=== PATIENT | female | born 1950 | race Caucasian/White ===

== ENCOUNTER 2016-09-21 08:51 | Inpatient (IN) | payer OTHER, MEDICARE ==
[~2016-09-21] VITALS: Ht 154.9 cm; Wt 68.0 kg
[2016-10-14] MEDS ORDERED: DICL75TA PO (09:34)
[2016-10-14] MEDS ORDERED: HYDR-3583 PO (09:34)
[2016-10-14] MEDS ORDERED: NORT25CA PO (09:34)
[2016-10-14] MEDS ORDERED: PREV15CA15 PO (09:34)
[2016-10-14] MEDS ORDERED: SUMA100T2 PO (09:34)
[2016-10-14] MEDS ORDERED: ZOFR4TAB PO (09:34)
--- NOTE | 2016-10-20 | MH ---
cc: IDANIA LOPEZ DATE OF ADMISSION: 10/20/2016 ADMITTING DIAGNOSIS: Right knee osteoarthritis. HISTORY OF PRESENT ILLNESS: This patient is a 66 year-old female with significant deformity and pain in the region of her right knee. Investigative study shows evidence of moderate to extensive arthritis right knee. Despite conservative care the patient is painful and symptomatic, and presents now for surgical treatment. PAST MEDICAL HISTORY: See attached notes. SOCIAL HISTORY, FAMILY HISTORY, AND REVIEW OF SYSTEMS: See attached notes. PHYSICAL EXAMINATION: GENERAL: The patient is a 66 year-old female in moderate distress with her right knee. HEENT: Normocephalic, atraumatic. Pupils equal, round, reactive to light and accommodation. Extraocular motions intact. NECK: Supple. CHEST: Clear. HEART: Regular rate and rhythm. ABDOMEN: Soft, nontender, normoactive bowel sounds. MUSCULOSKELETAL EXAMINATION: Right knee, pain with range of motion, mild deformity is seen. Crepitus with range of motion. Neurologic and vascular examination is within normal limits. IMPRESSION Osteoarthritis right knee PLAN Right total knee replacement arthroplasty. CONSENT The risks of surgery including infection, bleeding, loss of motion, continued pain, need for further surgery, neurologic and vascular injury. The patient understands these issues and wishes to press on with surgery as outlined above. Idania Lopez MD [facility] [place]11:37 PM /11:51 PM
[2016-10-20] MEDS ORDERED: LACTATED RINGER'S 1000 ML IV PRN (06:30)
[2016-10-20] MEDS ORDERED: INSULIN HUMAN REGULAR 1,000 UNITS/10 ML VIAL SQ PRN (06:30)
[2016-10-20] MEDS ORDERED: METOPROLOL TARTRATE 25 MG TAB PO PRN (06:30)
[2016-10-20] MEDS ORDERED: CHLORHEXIDINE GLUCONATE 2 % 1 PACK (2 CLOTHS) TOPICAL PRN (06:30)
[2016-10-20] MEDS ORDERED: POVIDONE IODINE 5% (ANTISEPSIS KIT) 4 APPLICATIONS EACH NARE PRN (06:30)
[2016-10-20] MEDS ORDERED: SODIUM CHLORID 0.9% 500 ML IV PRN (06:30)
[2016-10-20] MEDS ORDERED: GENTAMICIN SULFATE 80 MG/2 ML VIAL ONE (06:44)
[2016-10-20] MEDS ORDERED: TRANEXAMIC ACID IV SCH ×2 (06:45→11:30)
[2016-10-20] MEDS ORDERED: EXPAREL PERI-ARTICULAR INJECTION (TOTAL VOL. 60 ML) P-ARTICULR SCH ×2 (06:45)
[2016-10-20] MEDS ORDERED: POVIDONE IODINE 7.5% SCRUB 118 ML BOTTLE TOPICAL SCH (06:45)
[2016-10-20] MEDS ORDERED: SODIUM CHLORIDE 0.9% IV SCH ×2 (06:45→11:30)
[2016-10-20] MEDS ORDERED: VANCOMYCIN 1000 MG/NS 250 ML (for <70 kg) IV SCH ×2 (06:45)
[2016-10-20] MEDS ORDERED: ceFAZolin 2 GM PREMIX 50 ML IV SCH (06:45)
[2016-10-20 06:59] VITALS: BP 146/79; PULSE 75; RESP 20; TEMP 98.6; O2SAT 98
[2016-10-20] MEDS ORDERED: FAMOTIDINE 20 MG/2 ML VIAL ONE (08:13)
[2016-10-20] MEDS ORDERED: DEXAMETHASONE SOD PHOS 4 MG/ML VIAL ONE ×3 (08:13→11:25)
[2016-10-20] MEDS ORDERED: APREPITANT 40 MG CAP ONE (08:13)
--- NOTE | 2016-10-20 10:11 | PD.OP ---
cc: Jayson Alva MD Operative Report Date of Surgery: Oct 20, 2016 Preoperative Diagnosis: Osteoarthritis right knee Postoperative Diagnosis: Same Procedure: Right total knee replacement arthroplasty Anesthesia: Gen. Surgeon: Jayson Alva Warehouse Pricing And Inventory Clerk(s): IRIS Garzon Operation and Findings: EBL: 100 cc INDICATION: This patient presents with long-standing arthritis of the knee. Attachment record documents conservative measures. The patient now presents for surgical treatment. NOTE: Alessandra Garzon PA-C was present for the entire surgical procedure as my first coat sander. In my medical opinion her skill and care was necessary for proper management of this patient. TOURNIQUET TIME: 43 minutes COMPANY: [employer] FEMUR: Size 3, right, posterior cruciate retaining TIBIA: Size 2, right, fixed bearing PATELLA: 32 mm POLYETHYLENE INSERT: 9 mm PROCEDURE: This patient was brought the operating room and anesthetized in the supine position. The patient was positioned supine on the table. The tourniquet was placed about the thigh, and the leg was scrubbed with alcohol followed by Hibiclens followed by ChloraPrep and draped sterilely. A timeout was done, and antibiotics were given. After exsanguination the tourniquet was inflated to 250 mmHg. An anterior incision was made and a median parapatellar arthrotomy was performed. The patella was released laterally and subluxed allowing freehand cut of the patella which was then sized. A metal cap was placed over the exposed patellar surface for protection. A airplane patrol pilot hole was placed in the distal femur allowing a 3 valgus cut removing 10 mm from the distal femur. Anterior posterior and chamfer cuts were made. The posterior stabilize osteotomy was made. The attention was directed to the tibia. Retractors were positioned. The external alignment guide was used allowing the lateral tibia to be used as referencing guide and cut utilizing an oscillating saw taking care to avoid any injury to the surrounding soft tissues. This was sized properly. Trial reduction showed that the insert fit nicely. The patient had range of motion extension 0 flexion 125. A medial release was not necessary. The bony surfaces prepared. On the back table 2 packets of methylmethacrylate were mixed. The components were cemented. Excess cement was removed. The tourniquet let down and hemostasis was controlled. The final plastic insert was inserted. Range of motion was the same as previously noted. A drain was brought through a separate stab incision. The arthrotomy was repaired with interrupted #1 Vicryl suture, subcutaneous tissue 2-0 Vicryl suture and skin with metallic carla A sterile dressing was applied. Sponge counts, needle counts and instrument counts were all correct. The patient tolerated procedure well and was taken to recovery in satisfactory condition. FINDINGS: Severe osteoarthritis with erosion of distal femoral and proximal tibial bone. The final solution appeared be very satisfactory and very stable. Jayson Alva MD Oct 20, 2016 10:11
[2016-10-20] MEDS ORDERED: OXYC1TAB63 PO (10:12)
[2016-10-20] MEDS ORDERED: XARE10TA PO (10:12)
[2016-10-20] MEDS ORDERED: MISCELLANEOUS NURSING INFORMATION XX PRN (10:15)
[2016-10-20] MEDS ORDERED: MORPHINE SULFATE 30 MG/30 ML PCA IV SCH (10:15)
[2016-10-20] MEDS ORDERED: NALOXONE HCL 0.4 MG/ML AMP IV PRN (10:15)
[2016-10-20] MEDS ORDERED: MISCELLANEOUS PHARMACY INFORMATION XX ONE (10:15)
[2016-10-20] MEDS ORDERED: MORPHINE SULFATE 8 MG/ML INJ IM PRN (10:15)
[2016-10-20] MEDS ORDERED: TEMAZEPAM 15 MG CAP PO PRN (10:15)
[2016-10-20] MEDS ORDERED: oxyCODONE/ACETAMINOPHEN 5 MG/325 MG TAB PO PRN ×2 (10:15)
[2016-10-20] MEDS ORDERED: PANTOPRAZOLE SOD 20 MG DELAYED RELEASE TAB PO PRN (10:15)
[2016-10-20] MEDS ORDERED: Post-op Orders (for Pharmacy) MISC XX ONE (10:15)
[2016-10-20] MEDS ORDERED: SODIUM CHLORIDE 0.9% FLUSH 5 ML FLUSH IVF PRN (10:15)
[2016-10-20] MEDS ORDERED: *MEPERIDINE 25 MG INJ VIAL PERIprocedural Use ONLY ONE (10:33)
[2016-10-20] MEDS ORDERED: DO NOT ADM ANY ANTICOAGULANT DRUGS PRN (10:38)
[2016-10-20] MEDS ORDERED: *ONDANSETRON 4 MG VIAL PERIprocedural Use ONLY ONE (10:38)
[2016-10-20] MEDS ORDERED: fentaNYL CITRATE 250 MCG/5 ML AMP ONE (10:53)
[2016-10-20] MEDS ORDERED: *PROMETHAZINE 25 MG/ML VIAL PERIprocedural use ONLY ONE (10:54)
--- NOTE | 2016-10-20 11:04 | RADRPT ---
EXAM DATE/TIME: 10/20/2016 10:46 [place] COMPARISON: No previous studies available for comparison. INDICATIONS : Post op right knee arthroplasty. MEDICAL HISTORY : None. SURGICAL HISTORY : None. ENCOUNTER: Initial ACUITY: 1 day PAIN SCORE: 4/10 LOCATION: Right knee FINDINGS: Right total knee arthroplasty is present. The hardware is intact. Alignment is anatomic. A surgical d rain is present. Skin carla are noted ventrally. CONCLUSION: Satisfactory appearance post right TKA Juanjose Kline MD on October 20, 2016 at 11:02 Board Certified Radiologist. This report was verified electronically.
[2016-10-20] MEDS: LACTATED RINGER'S 1000 ML INJ 1,000 ML IV SCH ×2 (11:20→22:50)
[2016-10-20] MEDS ORDERED: DEXAMETHASONE SOD PHOS 4 MG/ML VIAL IV ONE (12:00)
[2016-10-20] MEDS ORDERED: BUPIVACAINE LIPOSOME PF 1.3% 20 ML VIAL ONE (12:47)
[2016-10-20 15:12] VITALS: BP 147/71; PULSE 67; RESP 18; TEMP 97.5; O2SAT 97
[2016-10-20] MEDS: PCA - TOTAL MG MORPHINE DELIVERED PER SHIFT SCH ×2 (16:30→22:55)
[2016-10-20 19:00] VITALS: BP 118/65; PULSE 80; RESP 16; TEMP 96; O2SAT 95
[2016-10-20] MEDS ORDERED: SENNOSIDES 8.6 MG TAB PO SCH (21:00)
[2016-10-20] MEDS ORDERED: NORTRIPTYLINE HCL 25 MG CAP PO SCH (21:00)
[2016-10-20] MEDS: MAGNESIUM HYDROXIDE SUSP 30 ML CUP PO SCH (22:53)
[2016-10-20] MEDS: SODIUM CHLORIDE 0.9% FLUSH 5 ML FLUSH IVF SCH (22:56)
[2016-10-21] VITALS: BP 111/57; PULSE 82; RESP 17; TEMP 98.5; O2SAT 92
[2016-10-21 04:00] VITALS: BP 106/56; PULSE 88; RESP 16; TEMP 98.1; O2SAT 93
[2016-10-21] MEDS: PCA - TOTAL MG MORPHINE DELIVERED PER SHIFT SCH ×2 (05:08→14:00)
[2016-10-21 06:02] LABS: REVIEW FLAG FINAL
[2016-10-21 07:49] VITALS: BP 102/56; PULSE 99; RESP 16; TEMP 98.3; O2SAT 93
--- NOTE | 2016-10-21 08:04 | PD.ORT.PN ---
Subjective Subjective Remarks She looks very good. No complaints. Not very much pain. Note some "pressure" Objective Vitals Vital Signs Date Time Temp Pulse Resp B/P Pulse Ox O2 Delivery O2 Flow Rate FiO2 10/21/16 07:49 98.3 99 16 102/56 93 10/21/16 05:08 18 10/21/16 04:00 98.1 88 16 106/56 93 10/21/16 00:00 98.5 82 17 111/57 92 10/20/16 22:55 17 10/20/16 19:19 Nasal Cannula 2.00 10/20/16 19:00 96.0 80 16 118/65 95 10/20/16 16:30 14 10/20/16 15:12 97.5 67 18 147/71 97 10/20/16 14:30 97.4 79 19 152/71 97 Nasal Cannula 2 10/20/16 14:11 14 10/20/16 14:00 70 19 151/69 97 Nasal Cannula 2 10/20/16 13:00 72 14 148/71 98 Nasal Cannula 2 10/20/16 12:00 68 21 149/78 97 Nasal Cannula 2 10/20/16 11:45 61 18 146/74 97 Nasal Cannula 2 10/20/16 11:30 65 24 163/76 96 Nasal Cannula 2 10/20/16 11:15 71 22 166/78 96 Nasal Cannula 2 10/20/16 11:00 69 22 152/71 96 Nasal Cannula 2 10/20/16 10:45 77 22 156/85 94 Nasal Cannula 2 10/20/16 10:33 97.6 87 21 136/89 94 Nasal Cannula 2 I/O 10/20/16 10/20/16 10/20/16 10/21/16 10/21/16 10/21/16 07:00 15:00 23:00 07:00 15:00 23:00 Intake Total 1587 ml 1194 ml 1003 ml Output Total 965 ml 1530 ml 520 ml Balance 622 ml -336 ml 483 ml Intake Oral 30 ml 480 ml 480 ml IV Total 557 ml 714 ml 523 ml Other 1000 ml Output Urine Total 850 ml 1500 ml 500 ml Drainage Total 15 ml 30 ml 20 ml Estimated Blood Loss 100 ml # Bowel Movements 0 0 Result Diagram: 10/21/16 0549 Imaging Last 24 hours Impressions Knee X-Ray 10/20/16 1006 Signed Impressions: Service Date/Time: October 10:46 - CONCLUSION: Satisfactory appearance post right TKA Juanjose Kline MD Objective Remarks Dressing dry. Not much drainage. X-rays look fine. No calf tenderness. Motor exam and sensory exam is normal. Hemoglobin stable Assessment & Plan Ortho Post Op Day #: 1 Problem List: Assessment and Plan Osteoarthritis right knee, severe. Valgus deformity right knee. Right TKA: POD #1. PLAN: Discharge to home today. Home healthcare. Home physical therapy. [place] for pain. Xarelto for 15 days. Stable orthopedically. DC drain. DC BREAD SUPERVISOR Jayson Alva MD Oct 21, 2016 08:04
[2016-10-21] MEDS ORDERED: WALKER WHEELS/F1 MIS (08:08)
[2016-10-21] MEDS ORDERED: COMMODE 3-IN-11 MIS (08:08)
--- NOTE | 2016-10-21 08:10 | HHI.FF ---
Face to Face Verification Diagnosis: (1) Right knee pain (2) Osteoarthritis of right knee Physical Therapy Gait training, Safety evaluation, Transfer training, bed to chair Knee: Total knee, Protocol: Right, Full weight bearing Canvas Knee Splint: When in bed & 2 pillows btw thighs Right LE Weight Bearing: WB as tolerated Additional Instructions PT 4 days/wk for 2 weeks. WBAT RLE. TKA protocol. CPM twice daily as tolerated. 0-60 w goal of 100 flexion Nursing RN Days per Week: 2 x Week(s): 1 Dressing Changes: Do not change dressing Additional Instructions Vitals assessment. Do not change dressing unless saturated or erythema. I have seen patient Shira Anderson on 10/21/16. My clinical findings support the need for the requested home health care services because: Limited ability to care for self High risk of falls I certify that my clinical findings support that this patient is homebound because: Post-op weakness Unsteady gait/balance Shelley Sharp Oct 21, 2016 08:09
--- NOTE | 2016-10-21 08:10 | HHI.DCPOC ---
Discharge Care Plan Diagnosis: (1) Right knee pain (2) Osteoarthritis of right knee Your Health Problems Are: Incision/Drains Swelling Goals to Promote Your Health * To prevent worsening of your condition and complications * To maintain your health at the optimal level Directions to Meet Your Goals Take your medications as prescribed Follow your dietary instruction Follow activity as directed Keep your appointments as scheduled Take your immunizations and boosters as scheduled If your symptoms worsen call your PCP, if no PCP go to Urgent Care Center or Emergency Room Smoking is Dangerous to Your Health. Avoid second hand smoke Call the 24-hour hour crisis hotline for domestic abuse at Shelley Sharp Oct 21, 2016 08:10
[2016-10-21] MEDS ORDERED: CPMMACHINE (08:11)
--- NOTE | 2016-10-21 08:11 | HHI.DS ---
Discharge Summary Admission Date Oct 20, 2016 at 06:11 Discharge Date: Oct 21, 2016 Admitting Diagnosis see below Diagnosis: (1) Right knee pain Diagnosis: Principal (2) Osteoarthritis of right knee Diagnosis: Principal Procedures Right total knee arthroplasty Brief History This is a 66 year old female patient CBC/BMP: 10/21/16 0549 Significant Findings Laboratory Tests Test 10/21/16 05:49 Hemoglobin 10.8 GM/DL (11.6-15.3) Hematocrit 32.0 % (35.0-46.0) PE at Discharge Dressing dry. Not much drainage. X-rays look fine. No calf tenderness. Motor exam and sensory exam is normal. Hemoglobin stable Hospital Course HHC...pod#1 Pt Condition on Discharge: Stable Discharge Disposition: Disch w/ Home Health Serv Discharge Instructions Diet Instructions: As Tolerated, No Restrictions, High Fiber Diet Additional Diet Instructions: High fiber diet for next 3-5 days Activities You Can Perform: Weight Bearing as Kenny Activities to Avoid: Strenuous Activity New Medications: Commode 3-in-1 (Commode 3-in-1) 1 Mis Mis 1 EA .ROUTE DIRECTED #1 Ref 0 EA Walker with Front Wheels (Walker with Front Wheels) 1 Mis Mis 1 EA .ROUTE DIRECTED #1 Ref 0 EA Oxycodone-Acetaminophen (Oxycodone-Acetaminophen) 5-325 mg Tab 1 TAB PO Q4H PRN PAIN LESS THAN 5 ON SCALE #50 TAB Rivaroxaban (Xarelto) 10 Mg Tab 10 MG PO Q24H Prevent Blood Clot #15 TAB Continued Medications: Diclofenac Sodium DR (Diclofenac Sodium DR) 75 Mg Tabdr 75 MG PO BID #60 Ref 0 TAB Hydrocodone-Acetaminophen (Hydrocodone-Acetaminophen) 10-325 mg Tab 1 TAB PO Q6H PRN PAIN Ref 0 TAB Lansoprazole (Prevacid) 15 Mg Capdr 15 MG PO DAILY PRN hrt Ref 0 CAP Nortriptyline (Nortriptyline) 25 Mg Cap 25 MG PO HS Depression Control #30 Ref 0 CAP Ondansetron (Zofran) 4 Mg Tab 4 MG PO Q6HR PRN NAUSEA OR VOMITING Ref 0 TAB Sumatriptan (Sumatriptan) 100 Mg Tab 100 MG PO ONCE If a satisfactory response has not been obtained at 2 hours, a second dose may be administered PRN MIGRAINE HEADACHE Ref 0 TAB Shelley Sharp Oct 21, 2016 08:11
[2016-10-21] MEDS: MAGNESIUM HYDROXIDE SUSP 30 ML CUP PO SCH (08:15)
[2016-10-21] MEDS: SODIUM CHLORIDE 0.9% FLUSH 5 ML FLUSH IVF SCH (08:16)
[2016-10-21] MEDS ORDERED: RIVAROXABAN 10 MG TAB PO SCH (10:00)
[2016-10-21] MEDS: LACTATED RINGER'S 1000 ML INJ 1,000 ML IV SCH (10:47)
[2016-10-21 10:49] VITALS: O2SAT 92
[2016-10-21 11:27] VITALS: BP 132/60; PULSE 91; RESP 16; TEMP 96.3; O2SAT 96
[2016-10-21 14:00] VITALS: RESP 16
== END 2016-10-21 16:59 | disposition home health service (06) | DRG 470 ==
LOC: HSDI 10-20 06:11 → N06B 10-20 15:21
PROVIDERS: ADMIT Orthopaedic Surgery Orthopaedic Surgery of the Spine; ATTEND Orthopaedic Surgery Orthopaedic Surgery of the Spine
PROC: 0SRC0J9 Replacement of Right Knee Joint with Synthetic Substitute, Cemented, Open Approach (ICD-10-PCS; principal; 2016-10-20 08:30)
DX: M17.11 Unilateral primary osteoarthritis, right knee (principal); K21.9 Gastro-esophageal reflux disease without esophagitis; M21.061 Valgus deformity, not elsewhere classified, right knee
CPT/HCPCS: 73560; 85014; 85018; 86850; 86900; 86901; 86920; 94150; C9290; J0690; J1100; J1580; J2175; J2270; J2405; J2550; J3010; J3370; J7050; J7120; J8501; L1830

== ENCOUNTER → 2016-10-14 | Outpatient (CLI) | payer OTHER, MEDICARE ==
[~2016-10-14] MED LIST: COMMODE 3-IN-11 MIS; CPMMACHINE; CYCL-36 PO; DICL75TA PO; HYDR-3583 PO; MS C15TA7 PO; NORT25CA PO; OXYC1TAB63 PO; PREV15CA15 PO; RANI300T PO; SUMA100T2 PO; WALKER WHEELS/F1 MIS; XARE10TA PO; ZOFR4TAB PO
== END ==
LOC: CPRE 08:43
PROVIDERS: ATTEND Orthopaedic Surgery Orthopaedic Surgery of the Spine
DX: Z01.812 Encounter for preprocedural laboratory examination (principal); M17.11 Unilateral primary osteoarthritis, right knee
CPT/HCPCS: 36415